=== PATIENT | female | born 1960 | race Caucasian/White ===

== ENCOUNTER 2016-06-07 07:32 | Day surgery (SDC) | payer OTHER ==
[2016-05-30 10:56] VITALS: BMI 33.8
[2016-06-07] MEDS ORDERED: LIDOCAINE HCL 2% (50ML VIAL) INF ONE (09:13)
[2016-06-07] MEDS ORDERED: LACTATED RINGERS SOLUTION 1,000 ML IV SCH (09:30)
[2016-06-07] MEDS ORDERED: ACETAMINOPHEN 325 MG TABLET (FP) PO PRN (10:06)
[2016-06-07] MEDS ORDERED: ONDANSETRON 4 MG/2 ML VIAL IVPUSH PRN (10:06)
[2016-06-07] MEDS ORDERED: oxyCODONE HCL 5 MG TABLET PO PRN (10:07)
[2016-06-07 17:09] VITALS: TEMP 97.9
[2016-06-07 17:17] VITALS: BP 122/76; PULSE 62
--- NOTE | 2016-06-07 20:42 | OP ---
DATE OF OPERATION: 06/07/2016 PREOPERATIVE DIAGNOSIS: Left carpal tunnel syndrome. POSTOPERATIVE DIAGNOSIS: Left carpal tunnel syndrome. OPERATIVE PROCEDURE: Left carpal tunnel release. ANESTHESIA: Local with sedation. COMPLICATIONS: None. ESTIMATED BLOOD LOSS: Minimal. INDICATIONS FOR PROCEDURE: The patient is a 56-year-old female with the above finding, indicated for operative treatment. Risks, benefits, alternatives were discussed with the patient at length and proper informed consent was obtained. PROCEDURE: After proper identification of patient and correct operative site, patient was brought to the operating room, placed supine on the operating table, all prominences well padded. Sedation was given by the anesthesiologist. Local anesthesia was given, 2% lidocaine. Left upper extremity was prepped and draped in usual sterile fashion. A well-padded tourniquet was placed over the sterile prep. Esmarch bandage to exsanguinate left upper extremity. Tourniquet was inflated to 250 mmHg. A longitudinal incision was made in the proximal aspect of the palm. Incision was taken sharply through the skin with blunt and sharp dissection through the subcutaneous tissues. Palmar fascia was divided longitudinally. Transverse carpal ligament was divided longitudinally along with the distal 4 cm of antebrachial fascia under direct visualization with loupe magnification. This provided complete release of the median nerve at the wrist. The wound was irrigated with copious amounts of normal saline and repaired with a 5-0 nylon suture. Sterile dressings were applied. Patient was reversed from sedation and brought to the recovery room in stable condition. She tolerated procedure well. John [id number]
== END 2016-06-07 10:33 | disposition home or self-care (01) ==
LOC: FASU 07:32
PROVIDERS: ATTEND Orthopaedic Surgery Hand Surgery
PROC: 01N50ZZ Release Median Nerve, Open Approach (ICD-10-PCS; principal; 2016-06-07 09:19)
DX: G56.02 Carpal tunnel syndrome, left upper limb (principal)

== ENCOUNTER 2017-04-17 09:19 | Observation (INO) | payer OTHER ==
[2017-04-17 09:35] VITALS: BMI 35.6
--- NOTE | 2017-04-17 09:43 | PDOC ---
History of Present Illness - General Chief Complaint: Shortness of Breath Stated Complaint: SOB, CHEST PAIN Time Seen by Provider: 04/17/17 09:36 History Source: Patient Exam Limitations: No Limitations - History of Present Illness Initial Comments: 04/17/17 10:17 Patient is a 57-year-old female past medical history of hyperlipidemia, "leaky valve", "irregular heartbeat", hypothyroid, who presents to the emergency department today complaining of increasing shortness of breath and chest pain. Patient states that her shortness of breath began approximately 2 months ago. She used to be able to walk 2-3 blocks. Now she cannot walk up and down the stairs without getting short of breath. Patient states that her source of breath got worse yesterday and she developed chest pains associated with her shortness of breath. She states the pain is on the left and is not made worse with respirations. She states her pain moves to her back. Patient also admits to dry cough. Denies recent illness, fevers, chills, edema, palpitations, orthopnea, nausea, vomiting. Past History - Travel Traveled outside of the country in the last 30 days: No Close contact w/someone who was outside of country & ill: No - Past Medical History Allergies/Adverse Reactions: Allergies Allergy/AdvReac Type Severity Reaction Status Date / Time No Known Allergies Allergy Verified 04/17/17 09:35 Home Medications: Ambulatory Orders Aspirin [ASA -] 81 mg PO DAILY #0 tab.chew 07/23/12 Furosemide [Lasix -] 40 mg PO DAILY #0 tablet 07/23/12 Nebivolol HCl [Bystolic] 2.5 mg PO DAILY 11/04/14 Atorvastatin Ca [Lipitor] 20 mg PO HS 04/07/16 Levothyroxine [Synthroid -] 88 mcg PO DAILY 04/07/16 Potassium Chloride [K-Dur -] 20 meq PO DAILY 04/07/16 Cholecalciferol (Vitamin D3) [Vitamin D3 -] 1,000 unit PO DAILY 05/30/16 Multivit-Min/Folic Acid/Biotin [Hair, Skin & Nails Caplet] 1 each PO DAILY 05/30 Vitamin B Complex [B Complex] 1 each PO DAILY 05/30/16 Anemia: No Asthma: No Cancer: No Cardiac Disorders: Yes ("IRREGULAR HEARTBEAT" LEAKY VALVE) CVA: No COPD: No CHF: No DVT: No Dementia: No Diabetes: No GI Disorders: No Disorders: No HTN: No Hypercholesterolemia: Yes Liver Disease: No Seizures: No Thyroid Disease: Yes (HYPO) - Surgical History Abdominal Surgery: Yes (STOMAC DAREN 30 YRS AGO) Appendectomy: No Cardiac Surgery: No Cholecystectomy: No Lung Surgery: No Neurologic Surgery: No Orthopedic Surgery: Yes (LEFT KNEE ARTHROSCOPY 8 YRS AGO) - Immunization History Immunization Up to Date: Yes - Suicide/Smoking/Psychosocial Hx Smoking Status: No Smoking History: Never smoked Have you smoked in the past 12 months: No Number of Cigarettes Smoked Daily: 0 Information on smoking cessation initiated: No Hx Alcohol Use: No Drug/Substance Use Hx: No Substance Use Type: None Hx Substance Use Treatment: No Review of Systems - Review of Systems Able to Perform ROS?: Yes Comments:: 04/17/17 11:39 CONSTITUTIONAL: Absent: fever, chills, diaphoresis, generalized weakness, malaise, loss of appetite HEENT: Absent: rhinorrhea, nasal congestion, throat pain, throat swelling, difficulty swallowing, mouth swelling, ear pain, eye pain, visual Changes CARDIOVASCULAR: Present: chest pain Absent: loss of consciousness, palpitations, irregular heart rate, peripheral edema RESPIRATORY: Present: dry cough, shortness of breath, dyspnea with exertion Absent: orthopnea , wheezing, stridor, hemoptysis GASTROINTESTINAL: Absent: abdominal pain, abdominal distension, nausea, vomiting, diarrhea, constipation, melena, hematochezia GENITOURINARY: Absent: dysuria, frequency, urgency, hesitancy, hematuria, flank pain, genital pain MUSCULOSKELETAL: Absent: myalgia, arthralgia, joint swelling SKIN: Absent: rash, itching, pallor HEMATOLOGIC/IMMUNOLOGIC: Absent: easy bleeding, easy bruising, lymphadenopathy, frequent infections ENDOCRINE: Absent: unexplained weight gain, unexplained weight loss, heat intolerance, cold intolerance NEUROLOGIC: Absent: headache, focal weakness or paresthesias, dizziness, unsteady gait, seizure, mental status changes, bladder or bowel incontinence PSYCHIATRIC: Absent: anxiety, depression, suicidal or homicidal ideation, hallucinations. Is the patient limited [place] proficient: No *Physical Exam - Vital Signs Last Vital Signs Temp Pulse Resp BP Pulse Ox 97.8 F 64 18 139/87 98 04/17/17 09:33 04/17/17 09:33 04/17/17 09:33 04/17/17 09:33 04/17/17 09:33 - Physical Exam Comments: 04/17/17 11:41 GENERAL: Well developed, well nourished. AAOx3. No acute distress. Laying on hospital bed breathing easily. HEENT: Normocephalic, atraumatic. PERRLA, EOMI. No conjunctival pallor. Sclera are non- icteric. Moist mucous membranes. Oropharynx is clear. NECK: Supple. Full ROM. No JVD. Carotid pulses 2+ and symmetric, without bruits. No thyromegaly. No lymphadenopathy. CARDIOVASCULAR: Regular rate and rhythm. No murmurs, rubs, or gallops. Distal pulses are 2+ and symmetric. PULMONARY: No evidence of respiratory distress. Lungs clear to auscultation bilaterally. No wheezing, rales or rhonchi. ABDOMINAL: Soft. Non-tender. Non-distended. No rebound or guarding. No organomegaly. Normoactive bowel sounds. MUSCULOSKELETAL Normal range of motion at all joints. No bony deformities or tenderness. No CVA tenderness. EXTREMITIES: No cyanosis. No clubbing. No edema. No calf tenderness. SKIN: Warm and dry. Normal capillary refill. No rashes. No jaundice. NEUROLOGICAL: Alert, awake, appropriate. Cranial nerves 2-12 intact. No deficits to light touch and temperature in face, upper extremities and lower extremities. No motor deficits in the in face, upper extremities and lower extremities. Normoreflexic in the upper and lower extremities. Normal speech. Toes are down- going bilaterally. Gait is normal without ataxia. PSYCHIATRIC: Cooperative. Good eye contact. Appropriate mood and affect. Heart Score/ECG Review - History History: Moderately suspicious - Electrocardiogram EKG: Normal - Age Age: 45-65 - Risk Factors Risk Factors Heart Score: Yes Hx Hypercholesterolemia, Yes Hx Obesity Based on the list above the patient has:: 1-2 risk factors - Troponin Troponin: </= normal limit - Score Heart Score - Total: 3 ED Treatment Course - LABORATORY CBC & Chemistry Diagram: 04/17/17 10:00 04/17/17 10:00 Medical Decision Making - Medical Decision Making 04/17/17 10:18 Patient is a 57-year-old female past medical history of hyperlipidemia, "leaky valve", "irregular heartbeat", hypothyroid, who presents to the emergency department today complaining of increasing shortness of breath and chest pain for two months. Medication review done. Pt on furosimide and potassium, underlying CHF component? Will r/o ACS at this time. Other differentials include but are not limited to PNA, bronchitis. Pt. states that her interactive developer is Dr. Mckenzie, PCP Dr. Casas 1. CBC, CMP, PT/INR, Mag, Cardiac profile 2. EKG, CXR 3. Aspirin 4. Re-evaluate 04/17/17 10:49 Dr. Mckenzie in the ED. Consulted with him about the patient. States pt has a history of CAD and previous catherization in the past. Would like pt. to be placed in observation for stress test at this time, assuming troponin is negative. Also discussed today's EKG, T-wave inversions are new as of 2 months ago. EKG: Rate 63, NSR. QTc 405. Normal axis. T-wave inversions in V1-V3. 04/17/17 11:50 First Troponin is negative. BNP normal, No leukocytosis, potassium WNL. Dr. Casas PCP, Dr. Cadena cogeneration operator. Will page at this time. 04/17/17 12:[address] Cadena 04/17/17 13:[address] Casas's service. 04/17/17 13:[address] Cadena. Case discussed. Pt. placed in tele obs for stress test. *DC/Admit/Observation/Transfer Diagnosis at time of Disposition: Shortness of breath Chest pain Qualifiers: Chest pain type: unspecified Qualified Code(s): R07.9 - Chest pain, unspecified - Discharge Dispostion Disposition: HOME Condition at time of disposition: Stable Admit: Yes - Referrals Referrals: Yohana Casas MD [Primary Care Provider] - - Patient Instructions - Post Discharge Activity
[2017-04-17] MEDS ORDERED: ASPIRIN 325 MG ENTERIC COATED TABLET (FP) PO ONE (09:53)
[2017-04-17] MEDS ORDERED: ASPIRIN 81 MG CHEWABLE TABLETS ONE ×2 (09:58→10:04)
[2017-04-17 10:31] LABS: BASO % 0.6 % (0-2.0); EOS % 2.2 % (0-4.5); HEMATOCRIT 39.1 % (32.4-45.2); HEMOGLOBIN 12.9 GM/dL (10.7-15.3); LYMPH % 33.6 % (8-40); MCH 29.3 pg (25.7-33.7); MCHC 33.1 g/dl (32.0-36.0); MEAN CELL VOLUME 88.5 fl (80-96); MEAN PLT VOLUME 8.4 fl (7.5-11.1); MONO % 7.2 % (3.8-10.2); NEUT % 56.4 % (42.8-82.8); PLATELET COUNT 346 K/MM3 (134-434); RBC 4.42 M/mm3 (3.60-5.2); RDW 13.2 % (11.6-15.6); WHITE BLOOD COUNT 7.1 K/mm3 (4.0-10.0)
[2017-04-17 10:59] LABS: ALBUMIN 3.5 g/dl (3.4-5.0); ANION GAP 10 (8-16); BILIRUBIN,TOTAL 0.4 mg/dL (0.2-1.0); BLOOD UREA NITROGEN 17 mg/dL (7-18); CALCIUM 9.4 mg/dL (8.5-10.1); CHLORIDE 101 mmol/L (98-107); CO2 29 mmol/L (21-32); CREATININE 0.7 mg/dL (0.55-1.02); GLUCOSE,RANDOM 99 mg/dL (74-106); POTASSIUM 3.8 mmol/L (3.5-5.1); SGOT/AST 28 U/L (15-37); SGPT/ALT 40 U/L (12-78); SODIUM 140 mmol/L (136-145); TOT PROT 7.1 g/dl (6.4-8.2)
[2017-04-17 11:02] LABS: ALK PHOS 113 U/L (45-117)
[2017-04-17 11:10] LABS: INR 1.1 (0.82-1.09); PROTHROMBIN TIME (PATIENT) 12.4 SEC (9.98-11.88)
--- NOTE | 2017-04-17 11:36 | PDOC ---
*Physical Exam - Vital Signs Last Vital Signs Temp Pulse Resp BP Pulse Ox 97.8 F 78 18 115/74 98 04/17/17 09:33 04/17/17 10:25 04/17/17 09:33 04/17/17 10:25 04/17/17 09:33 ED Treatment Course - LABORATORY CBC & Chemistry Diagram: 04/18/17 05:42 04/18/17 05:42 - ADDITIONAL ORDERS Additional order review: Laboratory Results 04/17/17 04/17/17 04/17/17 10:00 10:00 10:00 PT with INR 12.40 H INR 1.10 Sodium Cancelled 140 Potassium Cancelled 3.8 Chloride Cancelled 101 Carbon Dioxide Cancelled 29 Anion Gap Cancelled 10 BUN Cancelled 17 D Creatinine Cancelled 0.7 Creat Clearance w eGFR Cancelled > 60 Random Glucose Cancelled 99 Calcium Cancelled 9.4 Magnesium Cancelled Total Bilirubin Cancelled 0.4 AST Cancelled 28 ALT Cancelled 40 Alkaline Phosphatase Cancelled 113 Creatine Kinase 115 Troponin I < 0.02 B-Natriuretic Peptide Cancelled 46.40 Total Protein Cancelled 7.1 Albumin Cancelled 3.5 TSH Cancelled 04/17/17 10:00 RBC 4.42 MCV 88.5 MCHC 33.1 RDW 13.2 MPV 8.4 Neutrophils % 56.4 Lymphocytes % 33.6 Monocytes % 7.2 Eosinophils % 2.2 Basophils % 0.6 - Medications Given in the ED: ED Medications Discontinued Medications Generic Name Dose Route Start Last Admin Trade Name Freq PRN Reason Stop Dose Admin Aspirin 325 mg 04/17/17 09:53 04/17/17 10:02 Ecotrin - PO 04/17/17 09:54 325 mg ONCE ONE Administration Medical Decision Making - Medical Decision Making 04/17/17 11:35 The patient was seen and evaluated in conjunction with FLORENTINO Juárez under my direct supervision, ancillary studies were reviewed. I agree with the plan as outlined by FLORENTINO Juárez . *DC/Admit/Observation/Transfer Diagnosis at time of Disposition: Chest pain, Shortness of breath - Discharge Dispostion Disposition: HOME Condition at time of disposition: Stable - Referrals - Patient Instructions - Post Discharge Activity
--- NOTE | 2017-04-17 14:42 | EKG ---
Test Reason : Blood Pressure : / mmHG Vent. Rate : 063 BPM Atrial Rate : 063 BPM P-R Int : 150 ms QRS Dur : 090 ms QT Int : 396 ms P-R-T Axes : 048 -10 020 degrees QTc Int : 405 ms NORMAL SINUS RHYTHM LOW VOLTAGE QRS CANNOT RULE OUT ANTERIOR INFARCT , AGE UNDETERMINED ABNORMAL ECG Confirmed by Jose F Garcia MD ([id number]) on 04/17/2017 2:42:10 PM Referred By: Confirmed By:Jose F Garcia MD
--- NOTE | 2017-04-17 14:49 | HP ---
Admitting History and Physical - Primary Care Physician PCP: Yohana Casas - Admission Chief Complaint: chest pain and shortness of breath History of Present Illness: Patient is a 57-year-old female past medical history of hyperlipidemia, "leaky valve", "irregular heartbeat", hypothyroid, who presents to the emergency department today complaining of increasing shortness of breath and chest pain. Patient states that her shortness of breath began approximately 2 months ago. She used to be able to walk 2-3 blocks. Now she cannot walk up and down the stairs without getting short of breath. Patient states that her source of breath got worse yesterday and she developed chest pains associated with her shortness of breath. She states the pain is on the left and is not made worse with respirations. She states her pain moves to her back. Patient also admits to dry cough. Denies recent illness, fevers, chills, edema, palpitations, orthopnea, nausea, vomiting. per patient she has been getting progressively short of breath for last 2 months , now getting worse to the point that when she walk three stairs she needs to stop and catch her breath or when she talks alot she gets short of breath. today she felt light headed and dizzy and was having heaviness of chest as well in ER found to have negative troponin and some changes noted in EKG which are new; t wave inversion noted History Source: Patient - Past Medical History Cardiovascular: Yes: Hyperlipdemia, Other (leaking valve) Endocrine: Yes: Hypothyroidism - Smoking History Smoking history: Never smoked Have you smoked in the past 12 months: No Aproximately how many cigarettes per day: 0 - Alcohol/Substance Use Hx Alcohol Use: No Home Medications - Allergies Allergies/Adverse Reactions: Allergies Allergy/AdvReac Type Severity Reaction Status Date / Time No Known Allergies Allergy Verified 04/17/17 09:35 - Home Medications Home Medications: Ambulatory Orders Aspirin [ASA -] 81 mg PO DAILY #0 tab.chew 07/23/12 Furosemide [Lasix -] 40 mg PO DAILY #0 tablet 07/23/12 Nebivolol HCl [Bystolic] 2.5 mg PO DAILY 11/04/14 Atorvastatin Ca [Lipitor] 20 mg PO HS 04/07/16 Levothyroxine [Synthroid -] 88 mcg PO DAILY 04/07/16 Potassium Chloride [K-Dur -] 20 meq PO DAILY 04/07/16 Cholecalciferol (Vitamin D3) [Vitamin D3 -] 1,000 unit PO DAILY 05/30/16 Multivit-Min/Folic Acid/Biotin [Hair, Skin & Nails Caplet] 1 each PO DAILY 05/30 Vitamin B Complex [B Complex] 1 each PO DAILY 05/30/16 Review of Systems - Review of Systems Cardiovascular: reports: No Symptoms Physical Examination Vital Signs: Vital Signs Temperature 97.8 F 04/17/17 09:33 Pulse Rate 78 04/17/17 10:25 Respiratory Rate 18 04/17/17 09:33 Blood Pressure 115/74 04/17/17 10:25 O2 Sat by Pulse Oximetry (%) 98 04/17/17 09:33 Constitutional: Yes: Calm Cardiovascular: Yes: Regular Rate and Rhythm, S1, S2 Respiratory: Yes: CTA Bilaterally Gastrointestinal: Yes: Normal Bowel Sounds, Soft Edema: No Neurological: Yes: Alert, Oriented Labs: CBC, BMP 04/17/17 10:00 04/17/17 10:00 Imaging - Results Chest X-ray: Report Reviewed Problem List - Problems (1) Chest pain Assessment/Plan: admit to tele/ observation stress test cardio eval echo CE third set asa, statin BB lipid panel Code(s): R07.9 - CHEST PAIN, UNSPECIFIED Qualifiers: Chest pain type: unspecified Qualified Code(s): R07.9 - Chest pain, unspecified (2) Shortness of breath Assessment/Plan: echo bnp is ok no leg edema no effusion on xray allison hold lasix for now given she was dizzzy in morning telemetry to monitor arrythmia Code(s): R06.02 - SHORTNESS OF BREATH (3) Hypothyroid Assessment/Plan: synthroid tsh check Code(s): E03.9 - HYPOTHYROIDISM, UNSPECIFIED
[2017-04-17] MEDS ORDERED: FAMOTIDINE 20 MG/50 ML IVPB 20 MG in PREMIX 50 IVPB ONE (16:38)
[2017-04-17] MEDS ORDERED: MAG HYDROX/AL HYDROX/SIMETH 355 ML ORAL.SUSP PO ONE (16:38)
[2017-04-17] MEDS ORDERED: FAMOTIDINE 20 MG/50 ML IVPB 20 MG/50 ML MG IVPB ONE (16:41)
[2017-04-17] MEDS ORDERED: MAG HYDROX/AL HYDROX/SIMETH 30 ML UNIT-DOSE CUP ONE (16:41)
[2017-04-17] MEDS ORDERED: ATORVASTATIN CA 20 MG TABLET (FP) PO SCH (22:00)
--- NOTE | 2017-04-18 01:04 | CONS ---
DATE OF CONSULTATION: 04/17/2017 REQUESTING PHYSICIAN: Tammi Farrell M.D. REASON FOR CONSULTATION: Cardiology consultation. LOCATION: Emergency room. CHIEF COMPLAINT: 1. Chest pain. 2. Shortness of breath. HISTORY OF PRESENT ILLNESS: Patient is a 57-year-old white female with history of hypercholesterolemia, hypothyroidism, palpitations, nonobstructive coronary artery disease, started noticing interscapular and anterior pressure like chest pain starting approximately 2 months ago. Pain initially was mild, and occurred with exertion, relieved by rest, and was at times accompanied by exertional dyspnea, especially after she was walking 2-3 blocks. Both dyspnea and chest discomfort became progressively more frequent, occurring at shorter distances, and last Sunday she had severe intrascapular pain radiating to the anterior chest accompanied by shortness of breath and weakness/lightheadedness. Symptoms persisted for 1-2 hours and then abated. Patient states that in the last 2 days, she is unable to walk more than 6 steps without getting dyspneic. There is no history of paroxysmal nocturnal dyspnea or orthopnea. There is history of chronic intermittent pedal edema, usually at the end of the day. No history of hypertension or diabetes mellitus. PAST HISTORY: 1. As mentioned in the history of present illness. 2. History of intermittent vertigo. SURGICAL HISTORY: 1. Status post x2. 2. Status post gastric bypass. 3. Status post surgery for excessive abdominal skin over the abdomen and thighs. SOCIAL HISTORY: She is employed, is , has 2 daughters, is a nonsmoker and does not drink. She has 1 cup of coffee. No history of drug use. FAMILY HISTORY: Father had contracted hepatitis C from a blood transfusion and developed cirrhosis followed by carcinoma of the liver. He in his 60s. Mother was a diabetic and in her 60s of myocardial infarction. She has 2 sisters. The younger sister had a cerebral aneurysm and underwent coil procedure. Second sister had thyroid carcinoma and had total thyroidectomy done. ALLERGIES: Patient has experienced fatigue with metoprolol tartrate. MEDICATION: 1. Bystolic 2.5 mg p.o. daily. 2. Atorvastatin 20 mg p.o. daily. 3. Aspirin 81 mg p.o. daily. 4. Levothyroxine 88 mcg p.o. daily. 5. Lasix 40 mg on a p.r.n. basis. 6. Potassium supplements 20 mEq when she takes Lasix. Patient received famotidine IV which has since been discontinued. REVIEW OF SYSTEMS: Constitutional: No history of chills, fever, or night sweats. No history of unintentional weight loss. HEENT: No history of headaches, diplopia, blurred vision. No history of epistaxis, hoarseness, tinnitus, or deafness reported. Cardiovascular: See history of present illness. Respiratory: See history of present illness. History of intermittent morning cough which is nonproductive. No history of hemoptysis. Gastrointestinal: History of recurring gastroesophageal reflux disease. No history of nausea, vomiting, melena, or hematemesis. History of intermittent right upper quadrant discomfort. No history or change in bowel habits. Central nervous system: No history of seizures, syncope, or focal weakness. History of intermittent lightheadedness associated with chest discomfort. Musculoskeletal: History of arthralgias involving both knees, no history of myalgias. Genitourinary: No history of dysuria, frequency, or hematuria. Endocrine: History of hypothyroidism. No history of intolerance to cold or warm weather. No history of polyuria or polydipsia. Hematological: No history of ecchymosis, bleeding or anemia. PHYSICAL EXAMINATION: General: A 57-year-old female was in no acute distress, no pallor, cyanosis, clubbing, or jaundice. Vital signs: Weight 195 pounds. Blood pressure 110/75 mmHg. Pulse 78 beats per minute and regular. Oxygen saturation 97% on room air. Respirations 16 per minute. Neck: Supple. No jugulovenous distention. Carotids were 2+. Upstrokes were normal. No bruits were heard, and no thyromegaly was present. Heart: PMI was in the 5th intercostal space, no heaves or thrills. S1 and S2 were normal. Nonejection systolic click was heard along the left sternal border. There is a faint grade 1/6 apical systolic murmur. No diastolic murmur or gallops were heard. Lungs: Clear on auscultation. Chest: Normal AP diameter. Expansion was symmetrical. Abdomen: Soft, obese and nontender. No hepatosplenomegaly or palpable masses were felt. Bowel sounds were present. No bruits were heard. There were well healed surgical scars. Extremities: No calf tenderness or dependent edema, pulses were equal. ECG: Reported as normal sinus rhythm, low QRS voltage, cannot rule out anterior infarct, age indeterminate. X-rays chest, impression: No evidence of acute pulmonary disease. Echocardiogram, interpretation: there is borderline concentric left ventricular hypertrophy. The left ventricle is normal in structure and function. Right ventricle is normal in size and function. Normal left and right atrial size and function. There is trace to mild mitral regurgitation. There is trace tricuspid regurgitation. There is mild aortic sclerosis. IMPRESSION: 1. Chest pain syndrome, clinical presentation is suggestive of coronary artery disease, angina pectoris. 2. Abnormal echocardiogram. 3. Hypothyroidism, on replacement therapy. 4. History of gastroesophageal reflux disease. 5. Exogenous obesity. 6. Hypothyroidism on replacement therapy. 7. History of palpitations, most likely related to supraventricular or premature beats. RECOMMENDATION: 1. Serial EKGs and enzymes. 2. If enzymes are negative, would suggest Myoview stress test. 3. Continue current medications. 4. D-dimer. 5. Further suggestions would depend upon the results of the above mentioned tests. Thank you for your referral. Sincerely, ZAIN ZAVALA M.D. [id number]
[2017-04-18] MEDS: LEVOTHYROXINE NA 88 MCG TABLET (FP) PO SCH (06:02)
--- NOTE | 2017-04-18 08:13 | PN ---
Progress Note, Physician History of Present Illness: no cp this am c/o sob - Current Medication List Current Medications: Active Medications Aspirin (Ecotrin -) 81 mg PO DAILY ROHINI Atorvastatin Calcium (Lipitor -) 20 mg PO HS [facility] Last Admin: 04/17/17 22:12 Dose: Not Given Levothyroxine Sodium (Synthroid -) 88 mcg PO DAILY@0700 [facility] Last Admin: 04/18/17 06:02 Dose: 88 mcg Nebivolol (Bystolic -) 2.5 mg PO DAILY [facility] - Objective Vital Signs: Vital Signs Temperature 98.1 F 04/18/17 07:30 Pulse Rate 66 04/18/17 07:30 Respiratory Rate 16 04/18/17 07:30 Blood Pressure 132/60 04/18/17 07:30 O2 Sat by Pulse Oximetry (%) 98 04/17/17 22:29 Cardiovascular: Yes: Pulse Irregular, S1, S2 Respiratory: Yes: Regular, CTA Bilaterally Gastrointestinal: Yes: Normal Bowel Sounds, Soft Labs: INR, PTT INR 1.10 (0.82-1.09) 04/17/17 10:00 Problem List - Problems (1) Chest pain Assessment/Plan: admit to tele/ observation stress test cardio eval echo CE third set asa, statin BB lipid panel Code(s): R07.9 - CHEST PAIN, UNSPECIFIED Qualifiers: Chest pain type: unspecified Qualified Code(s): R07.9 - Chest pain, unspecified (2) Shortness of breath Assessment/Plan: echo bnp is ok no leg edema no effusion on xray allison hold lasix for now given she was dizzzy in morning telemetry to monitor arrythmia Code(s): R06.02 - SHORTNESS OF BREATH (3) Abdominal pain Assessment/Plan: US--FATTY LIVER GI CONSULT Code(s): R10.9 - UNSPECIFIED ABDOMINAL PAIN (4) Hypothyroid Assessment/Plan: FOLLOW TSH Code(s): E03.9 - HYPOTHYROIDISM, UNSPECIFIED (5) Arrhythmia Assessment/Plan: TELE Code(s): I49.9 - CARDIAC ARRHYTHMIA, UNSPECIFIED
[2017-04-18 08:42] LABS: BASO % 0.7 % (0-2.0); EOS % 2.5 % (0-4.5); HEMATOCRIT 40.4 % (32.4-45.2); HEMOGLOBIN 13.1 GM/dL (10.7-15.3); LYMPH % 30.3 % (8-40); MCH 28.9 pg (25.7-33.7); MCHC 32.3 g/dl (32.0-36.0); MEAN CELL VOLUME 89.5 fl (80-96); MEAN PLT VOLUME 9.1 fl (7.5-11.1); MONO % 6.7 % (3.8-10.2); NEUT % 59.8 % (42.8-82.8); PLATELET COUNT 354 K/MM3 (134-434); RBC 4.51 M/mm3 (3.60-5.2); RDW 13.5 % (11.6-15.6); WHITE BLOOD COUNT 8.3 K/mm3 (4.0-10.0)
[2017-04-18 09:12] LABS: CHOLESTEROL 188 mg/dL (50-200); HDL CHOLESTEROL 62 mg/dL (40-60); LDL CHOLESTEROL (ONLY SJRH) 108 mg/dL (5-100); TRIGLYCERIDES 122 mg/dL (35-160)
[2017-04-18 09:21] LABS: CHLORIDE 104 mmol/L (98-107); POTASSIUM 3.8 mmol/L (3.5-5.1); SODIUM 141 mmol/L (136-145)
[2017-04-18 09:46] LABS: ALBUMIN 3.5 g/dl (3.4-5.0); ALK PHOS 109 U/L (45-117); ANION GAP 8 (8-16); BILIRUBIN,TOTAL 0.8 mg/dL (0.2-1.0); BLOOD UREA NITROGEN 15 mg/dL (7-18); CALCIUM 8.9 mg/dL (8.5-10.1); CO2 29 mmol/L (21-32); CREATININE 0.8 mg/dL (0.55-1.02); GLUCOSE,RANDOM 80 mg/dL (74-106); PHOSPHOROUS 3.6 mg/dL (2.5-4.9); SGOT/AST 23 U/L (15-37); SGPT/ALT 38 U/L (12-78)
[2017-04-18] MEDS ORDERED: NEBIVOLOL 2.5 MG TABLET (FP) PO SCH (10:00)
[2017-04-18] MEDS ORDERED: PT OWN MED DRAWER 7, Y5N ONE (11:06)
[2017-04-18] MEDS ORDERED: BISACODYL 5 MG TABLET.DR (FP) PO ONE ×2 (13:54→14:45)
[2017-04-18] MEDS ORDERED: ATORVASTATIN CA 40 MG TABLET (FP) PO SCH (13:54)
--- NOTE | 2017-04-18 14:18 | CON.GI ---
Consult Consult Specialty:: GI: Dr. Mays covering for Dr. Casas Referred by:: Dr. Casas Reason for Consultation:: Abdominal pain - History of Present Illness Chief Complaint: "my shortness of breath has been getting worse" History of Present Illness: 57F admitted through [facility] for evaluation of progressive RAMOS and intermittent chest pain in mid chest radiating from back to front. Called to evaluate right sided abdominal pain. Ms. Delacruz describes the pain as intermittent, worse with motion, particularly when she gets out of bed in the morning. It is not radiating and appears to be isolated to a particular area of the mid right abdomen where she points. This has been going on for quite some time now but has "gotten worse recently". there has been no associated nausea, vomiting, rectal bleeding. She has chronic constipation for which she uses dulcolax and has not had a bowel movement in 2 days and also has chronic acid reflux. She believes that she had an EGD and colonoscopy with Dr. Valadez about 5-6 years ago that were OK and has an appointment to see him at the end of this month. She had an abdominal US 1217 that revealed a fatty liver and normal gallbladder. there is no family history of colorectal cancer or other GI malignancy. - History Source History Provided By: Patient Limitations to Obtaining History: No Limitations - Past Medical History Cardio/Vascular: Yes: Hyperlipdemia, Other (leaking valve) Gastrointestinal: Yes: Constipation, GERD Hepatobiliary: Yes: Other (Fatty liver) ...: No Endocrine: Yes: Hypothyroidism - Past Surgical History Additional Surgical History: stomach reduction surgery 30 years prior, b/l cystectomies of the breasts, cosmetic leg surgeries b/l, - Alcohol/Substance Use Hx Alcohol Use: No History of Substance Use: reports: None - Smoking History Smoking history: Never smoked Have you smoked in the past 12 months: No Aproximately how many cigarettes per day: 0 - Social History Usual Living Arrangement: With Spouse ADL: Independent Occupation: Worked in [employer] industry Place of : [facility] History of Recent Travel: No Home Medications - Allergies Allergies/Adverse Reactions: Allergies Allergy/AdvReac Type Severity Reaction Status Date / Time No Known Allergies Allergy Verified 04/17/17 09:35 - Home Medications Home Medications: Ambulatory Orders Aspirin [ASA -] 81 mg PO DAILY #0 tab.chew 07/23/12 Furosemide [Lasix -] 40 mg PO DAILY #0 tablet 07/23/12 Nebivolol HCl [Bystolic] 2.5 mg PO DAILY 11/04/14 Atorvastatin Ca [Lipitor] 20 mg PO HS 04/07/16 Levothyroxine [Synthroid -] 88 mcg PO DAILY 04/07/16 Potassium Chloride [K-Dur -] 20 meq PO DAILY 04/07/16 Cholecalciferol (Vitamin D3) [Vitamin D3 -] 1,000 unit PO DAILY 05/30/16 Multivit-Min/Folic Acid/Biotin [Hair, Skin & Nails Caplet] 1 each PO DAILY 05/30 Vitamin B Complex [B Complex] 1 each PO DAILY 05/30/16 Family Disease History - Family Disease History Family Disease History: Other: Father (: 60's liver cancer in setting of cirrhosis with ? hepatitis C), Mother (: 60's: CVA, brain tumor), Sister (2 : 1 w/ ovarian ca, 1 with thyroid cancer), Daughter (2, healthy) Other Family History: No family history of colorectal cancer or other GI malignancy Physical Exam-GI Vital Signs: Vital Signs Temperature 98.1 F 04/18/17 07:30 Pulse Rate 66 04/18/17 07:30 Respiratory Rate 16 04/18/17 07:30 Blood Pressure 132/60 04/18/17 07:30 O2 Sat by Pulse Oximetry (%) 96 04/18/17 09:00 Constitutional: Yes: Calm Eyes: No: Sclera Icterus Cardiovascular: Yes: Regular Rate and Rhythm. No: Murmur Respiratory: Yes: CTA Bilaterally Gastrointestinal Inspection: Yes: Scars (Midline vertical surgical scar). No: Distention ...Auscultate: Yes: Normoactive Bowel Sounds ...Palpate: Yes: Tenderness (Mild TTP mid-right abdomen. Negative Carnett's sign ). No: Hepatomegaly, Splenomegaly ...Percussion: No: Tympanitic Edema: Yes Edema: LLE: Trace, RLE: Trace Neurological: Yes: Alert Labs: CBC, BMP 04/18/17 05:42 04/18/17 05:42 INR, PTT INR 1.10 (0.82-1.09) 04/17/17 10:00 Hepatic Panel Total Bilirubin 0.8 mg/dL (0.2-1.0) D 04/18/17 05:42 AST 23 U/L (15-37) 04/18/17 05:42 ALT 38 U/L (12-78) 04/18/17 05:42 Alkaline Phosphatase 109 U/L (45-117) 04/18/17 05:42 Albumin 3.5 g/dl (3.4-5.0) 04/18/17 05:42 Problem List - Problems (1) Abdominal pain Assessment/Plan: Chronic right sided abdominal pain, worse with positional change. ? if somatic as opposed to visceral etiology. also with constipation. ? if contributing Plan: MiraLAX 17g daily first dose today CT scan of the abdomen and pelvis with PO contrast Outpatient follow-up with Dr. Valadez when acute issues are resolved. i advised that she keep the appointment that she has at the end of this month Code(s): R10.9 - UNSPECIFIED ABDOMINAL PAIN (2) Fatty liver Assessment/Plan: On US from 1217. Discussed with Ms. Delacruz. Advised dietary changes, exercise when feasible and follow-up with Dr. Valadez as outpatient Code(s): K76.0 - FATTY (CHANGE OF) LIVER, NOT ELSEWHERE CLASSIFIED
[2017-04-18] MEDS: ASPIRIN COATED 81 MG TABLET.EC PO SCH (14:20)
--- NOTE | 2017-04-18 15:07 | EKG ---
Test Reason : Blood Pressure : / mmHG Vent. Rate : 076 BPM Atrial Rate : 076 BPM P-R Int : 168 ms QRS Dur : 100 ms QT Int : 368 ms P-R-T Axes : 037 -16 049 degrees QTc Int : 414 ms NORMAL SINUS RHYTHM ABNORMAL ECG WHEN COMPARED WITH ECG OF 17-APR-2017 09:28, NO SIGNIFICANT CHANGE WAS FOUND Confirmed by STACI AVERY MD ([id number]) on 04/18/2017 3:07:21 PM Referred By: Albert SAMANIEGO Confirmed By:STACI AVERY MD
--- NOTE | 2017-04-18 16:40 | PN ---
Progress Note (short form) - Note Progress Note: 57 year old female admitted with h/o recurring and increasing exertional chest pain associated with SOB, patient underwent a myoview ETT, test wss submaximal, achieved 75% of predictive maximum heart rate and test was nondiagnostic. Nuclear scan did nor reveal ischemic changes. Patint did develop chest pain and SOB at peak excercise (Stage II Kaushik protocol). H/o hypothyroidism and hypercholesterolemia. H/o GERD, and c/o of RUQ discomfort associated with change in posture. Had a cardiac cath in 2007 and revealed a 20% lesion involving the proximal LAD. Active Medications Generic Name Dose Route Start Last Admin Trade Name Freq PRN Reason Stop Dose Admin Aspirin 81 mg 04/18/17 10:00 04/18/17 14:20 Ecotrin - PO 81 mg DAILY ROHINI Administration Atorvastatin Calcium 40 mg 04/18/17 13:54 Lipitor - PO HS ROHINI Levothyroxine Sodium 88 mcg 04/18/17 07:00 04/18/17 06:02 Synthroid - PO 88 mcg DAILY@0700 ROHINI Administration Nebivolol 2.5 mg 04/18/17 10:00 04/18/17 14:20 Bystolic - PO 2.5 mg DAILY ROHINI Administration Pantoprazole Sodium 20 mg 04/19/17 10:00 Protonix - PO DAILY ROHINI Polyethylene Glycol 17 gm 04/19/17 10:00 Miralax (For Daily Use) - PO DAILY ROHINI 57 year old obese female in no acute distress, no pallor, cyanosis, clubbing or jaundice. Last Vital Signs Temp Pulse Resp BP Pulse Ox 98.0 F 79 16 140/73 96 04/18/17 14:00 04/18/17 14:00 04/18/17 07:30 04/18/17 14:00 04/18/17 09:00 NECK:Supple, no JVD, carotids 2+, upstrokes were normal, no bruits heard and no thyromegaly. HEART:No heaves or thrills, nonejection click along the LSB. No murmur or gallops heard. LUNGS:Clear on auscultation. ABDOMEN:Soft, nontender, obese, no organomegaly or palpable masses.Well healed surgical scars EXTREMITIES:No calf tenderness or dependent edema. CBC, BMP 04/18/17 05:42 01/10/18 05:42 IMPRESSION: 1: Chest pain syndrome associated with exertional dyspnea, etiology: a). CAD, angina pectoris needs to be excluded. 2. Abnormal resting EKG. 3.Hypothyroidism, on replaced therapy. 4.GERD. 5.Exogenous obesity. 6.Hypercholesterolemia. RECOMMENDATIONS: 1. D-Dimer. 2. BNP. 3. in view clinical presentation would suggest early cath. 4. Patient scheduled for a CT of the abdomen and pelvis. 5. Increase dose of Bystolic to 5mg. daily. ZAIN ZAVALA MD.
[2017-04-19] MEDS ORDERED: ACETAMINOPHEN 325 MG TABLET (FP) PO ONE (05:36)
[2017-04-19] MEDS: LEVOTHYROXINE NA 88 MCG TABLET (FP) PO SCH (06:06)
--- NOTE | 2017-04-19 08:25 | PN ---
Progress Note, Physician History of Present Illness: no cp this am c/o sob - Current Medication List Current Medications: Active Medications Aspirin (Ecotrin -) 81 mg PO DAILY [facility] Last Admin: 04/18/17 14:20 Dose: 81 mg Atorvastatin Calcium (Lipitor -) 40 mg PO HS [facility] Last Admin: 04/18/17 21:51 Dose: Not Given Levothyroxine Sodium (Synthroid -) 88 mcg PO DAILY@0700 [facility] Last Admin: 04/19/17 06:06 Dose: 88 mcg Nebivolol (Bystolic -) 5 mg PO DAILY ROHINI Pantoprazole Sodium (Protonix -) 20 mg PO DAILY [facility] Polyethylene Glycol (Miralax (For Daily Use) -) 17 gm PO DAILY [facility] - Objective Vital Signs: Vital Signs Temperature 98.4 F 04/19/17 06:00 Pulse Rate 66 04/19/17 06:00 Respiratory Rate 20 04/19/17 06:00 Blood Pressure 107/68 04/19/17 06:00 O2 Sat by Pulse Oximetry (%) 96 04/18/17 21:00 Cardiovascular: Yes: Regular Rate and Rhythm Respiratory: Yes: Regular, CTA Bilaterally Gastrointestinal: Yes: Normal Bowel Sounds, Soft. No: Tenderness Edema: No Labs: CBC, BMP 04/18/17 05:42 04/18/17 05:42 INR, PTT INR 1.10 (0.82-1.09) 04/17/17 10:00 Problem List - Problems (1) Chest pain Assessment/Plan: admit to tele/ observation stress test SUBOPTIMAL cardio eval echo CE third set asa, statin BB lipid panel WILL D/W CARDIO--POSSIBLE CATH Code(s): R07.9 - CHEST PAIN, UNSPECIFIED Qualifiers: Chest pain type: unspecified Qualified Code(s): R07.9 - Chest pain, unspecified (2) Shortness of breath Assessment/Plan: echo noted bnp is ok no leg edema no effusion on xray allison hold lasix for now given she was dizzzy in morning telemetry to monitor arrythmia for cath Code(s): R06.02 - SHORTNESS OF BREATH (3) Abdominal pain Code(s): R10.9 - UNSPECIFIED ABDOMINAL PAIN (4) Hypothyroid Assessment/Plan: FOLLOW TSH Code(s): E03.9 - HYPOTHYROIDISM, UNSPECIFIED (5) Arrhythmia Assessment/Plan: TELE Code(s): I49.9 - CARDIAC ARRHYTHMIA, UNSPECIFIED
--- NOTE | 2017-04-19 09:59 | PN ---
Progress Note (short form) - Note Progress Note: 57 year old female admitted with h/o recurring and increasing exertional chest pain associated with SOB, patient underwent a myoview ETT, test wss submaximal, achieved 75% of predictive maximum heart rate and test was nondiagnostic. Nuclear scan did nor reveal ischemic changes. Patient did develop chest pain and SOB at peak excercise (Stage II Kaushik protocol).Known case of GERD, hypothyroidism and hypercholesterolemia. and c/o of RUQ discomfort associated unrelated to food, occurs with change in posture. Had a cardiac cath in 2007 at [facility] and revealed a 20% lesion involving the proximal LAD. Active Medications Generic Name Dose Route Start Last Admin Trade Name Freq PRN Reason Stop Dose Admin Aspirin 81 mg 04/18/17 10:00 04/18/17 14:20 Ecotrin - PO 81 mg DAILY ROHINI Administration Atorvastatin Calcium 40 mg 04/18/17 13:54 Lipitor - PO HS ROHINI Levothyroxine Sodium 88 mcg 04/18/17 07:00 04/18/17 06:02 Synthroid - PO 88 mcg DAILY@0700 ROHINI Administration Nebivolol 2.5 mg 04/18/17 10:00 04/18/17 14:20 Bystolic - PO 2.5 mg DAILY ROHINI Administration Pantoprazole Sodium 20 mg 04/19/17 10:00 Protonix - PO DAILY ROHINI Polyethylene Glycol 17 gm 04/19/17 10:00 Miralax (For Daily Use) - PO DAILY ROHINI 57 year old obese female in no acute distress, no pallor, cyanosis, clubbing or jaundice. Last Vital Signs Temp Pulse Resp BP Pulse Ox 98.4 F 66 20 107/68 96 04/19/17 06:00 04/19/17 06:00 04/19/17 06:00 04/19/17 06:00 04/18/17 21:00 NECK: Supple, no JVD, carotids 2+, no bruits or thyromegaly. HEART: PMI in the 5th ICS, no heaves or thrills NEC along the LSB, no murmur or gallops heard. LUNGS: Clear on auscultation. ABDOMEN: Obese, nontender, nohepatosplenomegaly or palpable masses, well healed surgical scars. EXTREMITIES: No calf tenderness or dependent edema. CBC, BMP 04/18/17 05:42 04/18/17 05:42 Laboratory Results - last 24 hr 04/18/17 04/18/17 18:10 18:10 D-Dimer 330 B-Natriuretic Peptide 42.86 IMPRESSION: 1. Chest Pain syndrome associated with dyspnea, CAD angina needs exclusion. 2. Hypercholesterolemia. 3. OSAS. 4. Obesity. 5.GERD. 6.S/p gastric bypass surgery. Recommendations: 1. Discussed with patient and DrJennifer and agreeable for transrer to [facility] for cardiac cath. 2. Arrangements have been made. .
[2017-04-19] MEDS ORDERED: PANTOPRAZOLE 20 MG TABLET (FP) PO SCH (10:00)
[2017-04-19] MEDS ORDERED: NEBIVOLOL 5 MG TABLET (FP) PO SCH (10:00)
[2017-04-19] MEDS ORDERED: POLYETHYLENE GLYCOL 3350 119 GM BTL PO SCH (10:00)
[2017-04-19 10:50] VITALS: BP 150/90; PULSE 84; TEMP 98.6
[2017-04-19] MEDS: ASPIRIN COATED 81 MG TABLET.EC PO SCH (10:51)
== END 2017-04-19 11:19 | disposition short-term general hospital (02) ==
LOC: JER 09:19 → JERBED 13:52 → J4W 20:56
PROVIDERS: ADMIT Family Medicine; ATTEND Family Medicine
DX: R07.9 Chest pain, unspecified (principal); R06.02 Shortness of breath; R10.9 Unspecified abdominal pain; E03.9 Hypothyroidism, unspecified; E78.5 Hyperlipidemia, unspecified; I34.0 Nonrheumatic mitral (valve) insufficiency; I49.9 Cardiac arrhythmia, unspecified; K76.0 Fatty (change of) liver, not elsewhere classified; K21.9 Gastro-esophageal reflux disease without esophagitis; E66.9 Obesity, unspecified; Z68.35 Body mass index [BMI] 35.0-35.9, adult; Z79.82 Long term (current) use of aspirin; Z98.84 Bariatric surgery status
CPT/HCPCS: 36415; 71045-TC; 74176-TC; 78452-TC; 80053; 80061; 82550; 83721; 83735; 83880; 84100; 84443; 84484; 85025; 85379; 85610; 93005; 93010; 93017; 93306-TC; 99284-25; A9502; G0378

== ENCOUNTER 2017-05-09 10:06 | Day surgery (SDC) | payer OTHER ==
[2017-05-08 11:49] VITALS: BMI 34.9
[2017-05-09] MEDS ORDERED: PROPOFOL 20 ML ONE (10:27)
[2017-05-09 11:26] VITALS: TEMP 97.6
[2017-05-09 12:09] VITALS: BP 114/73; PULSE 72
--- NOTE | 2017-05-10 13:17 | PATH ---
Surgical Pathology Report Patient Name: RUBÉN OMALLEY [facility]. Rec. #: [id number] /Age/Gender: 1960 (Age: 57) / F Account: [id number] Location: U-ENDOSCOPY Taken: 05/09/2017 Received: 05/09/2017 Reported: 05/10/2017 Physicians: Denise Valadez M.D. Specimen(s) Received A: BX SECOND PORTION DUODENUM B: BX ANTRUM Clinical History Preoperative diagnosis: Abdominal pain Postoperative diagnosis: Hiatal hernia, GERD, gastric sleeve Final Diagnosis A. DUODENUM, SECOND PORTION AND BULB, BIOPSY: DUODENAL MUCOSA WITHOUT SIGNIFICANT PATHOLOGIC FINDINGS. B. STOMACH, ANTRUM, BIOPSY: GASTRIC ANTRAL MUCOSA WITH MILD CHRONIC GASTRITIS. IMMUNOHISTOCHEMICAL STAIN FOR H. PYLORI IS NEGATIVE. Electronically Signed Donna Tang M.D. Gross Description A. Received in formalin, labeled "biopsy second portion of duodenum and duodenal bulb" are 3 gomez, irregular portions of soft tissue averaging 0.3 cm. in greatest dimension. The specimens are submitted in toto in one cassette. B. Received in formalin, labeled "biopsy antrum" are 2 gomez, irregular portions of soft tissue averaging 0.4 cm. in greatest dimension. The specimens are submitted in toto in one cassette. 05/09/201705/09/2017
== END 2017-05-09 12:27 | disposition home or self-care (01) ==
LOC: JASU-ENDO 10:06
PROVIDERS: ATTEND Internal Medicine Gastroenterology
PROC: 0DB68ZX Excision of Stomach, Via Natural or Artificial Opening Endoscopic, Diagnostic (ICD-10-PCS; 2017-05-09)
PROC: 0DB98ZX Excision of Duodenum, Via Natural or Artificial Opening Endoscopic, Diagnostic (ICD-10-PCS; principal; 2017-05-09 10:45)
DX: K21.0 Gastro-esophageal reflux disease with esophagitis (principal); K44.9 Diaphragmatic hernia without obstruction or gangrene; Z98.84 Bariatric surgery status
CPT/HCPCS: 88305-TC; 88342-TC

== ENCOUNTER 2018-05-08 13:10 | Emergency (ER) | payer OTHER ==
[2018-05-08 13:25] VITALS: BP 128/85; PULSE 70; TEMP 98.5; BMI 35.6
--- NOTE | 2018-05-08 14:49 | PDOC ---
History of Present Illness - General Chief Complaint: Headache Stated Complaint: HEADPAIN / BLURRY VISION Time Seen by Provider: 05/08/18 14:23 History Source: Patient Exam Limitations: No Limitations - History of Present Illness Initial Comments: 05/08/18 14:25 58 year old woman with a past medical history of hyperlipidemia, "leaky valve", "irregular heartbeat", hypothyroid who presents with 3 days of 2-3 second intermittent L sided 10/10 throbbing/ headache with L sided scalp tenderness and associated tugging sensation at the L ear. The patient has taken Tylenol over the past few days without relief. The patient denies nausea, diaphoresis, dizziness, unsteadiness on her feet, recent fever, recent illness, chest pain or shortness of breath. Patient has no other complaints. Past History - Past Medical History Allergies/Adverse Reactions: Allergies Allergy/AdvReac Type Severity Reaction Status Date / Time No Known Allergies Allergy Verified 05/08/18 18:04 Home Medications: Ambulatory Orders Aspirin [ASA -] 81 mg PO DAILY #0 tab.chew 07/23/12 Furosemide [Lasix -] 40 mg PO DAILY #0 tablet 07/23/12 Nebivolol HCl [Bystolic] 2.5 mg PO DAILY 11/04/14 Atorvastatin Ca [Lipitor] 20 mg PO HS 04/07/16 Levothyroxine [Synthroid -] 88 mcg PO DAILY 04/07/16 Potassium Chloride [K-Dur -] 20 meq PO DAILY 04/07/16 Cholecalciferol (Vitamin D3) [Vitamin D3 -] 1,000 unit PO DAILY 05/30/16 Multivit-Min/Folic Acid/Biotin [Hair, Skin and Nails Caplet] 1 each PO DAILY Vitamin B Complex [B Complex] 1 each PO DAILY 05/30/16 Pantoprazole Sodium [Protonix -] 40 mg PO HS #30 tablet.ec 05/09/17 Anemia: No Asthma: No Cancer: No Cardiac Disorders: Yes (PAROXYSMAL SVT, ASHF CARDIAC=30% CORONARY BLOCKAGE 04/26) CVA: No COPD: No CHF: No DVT: No Dementia: No Diabetes: No GI Disorders: Yes (ACID REFLUX, COLON POLYP) Disorders: No HTN: No Hypercholesterolemia: Yes Liver Disease: No Seizures: No Thyroid Disease: Yes (HYPO) - Surgical History Abdominal Surgery: Yes (STOMACH DAREN 30 YRS AGO) Appendectomy: No Cardiac Surgery: No Cholecystectomy: No Lung Surgery: No Neurologic Surgery: No Orthopedic Surgery: Yes (LEFT KNEE ARTHROSCOPY 8 YRS AGO) - Immunization History Immunization Up to Date: Yes - Suicide/Smoking/Psychosocial Hx Smoking Status: No Smoking History: Never smoked Have you smoked in the past 12 months: No Number of Cigarettes Smoked Daily: 0 Information on smoking cessation initiated: No Hx Alcohol Use: No Drug/Substance Use Hx: No Substance Use Type: None Hx Substance Use Treatment: No Review of Systems - Review of Systems Able to Perform ROS?: Yes Is the patient limited Sammarinese proficient: No Constitutional: No: Chills, Diaphoresis, Fever HEENTM: Yes: Blurred Vision. No: Tinnitus Respiratory: No: Cough, Orthopnea, Shortness of Breath Cardiac (ROS): No: Chest Pain, Lightheadedness, Palpitations, Syncope ABD/GI: No: Constipated, Diarrhea, Nausea, Vomiting : No: Burning, Dysuria, Hematuria Musculoskeletal: No: Back Pain, Muscle Pain Neurological: Yes: Headache. No: Numbness, Paresthesia, Tingling *Physical Exam - Vital Signs Last Vital Signs Temp Pulse Resp BP Pulse Ox 98.5 F 70 16 128/85 95 05/08/18 13:22 05/08/18 13:22 05/08/18 13:22 05/08/18 13:22 05/08/18 13:22 - Physical Exam Comments: 05/08/18 15:48 GENERAL: Awake, alert, and fully oriented, in no acute distress HEAD: No signs of trauma, normocephalic, atraumatic, L sided scalp tenderness to palpation EYES: PERRLA, EOMI, sclera anicteric, conjunctiva clear ENT: Auricles normal inspection, hearing grossly normal, nares patent, oropharynx clear without exudates. Moist mucosa NECK: Normal ROM, supple, no lymphadenopathy, JVD, or masses, no carotid bruit LUNGS: No distress, speaks full sentences, clear to auscultation bilaterally HEART: Regular rate and rhythm, normal S1 and S2, no murmurs, rubs or gallops, peripheral pulses normal and equal bilaterally. ABDOMEN: Soft, nontender, normoactive bowel sounds. No guarding, no rebound. No masses EXTREMITIES : Normal inspection, Normal range of motion, no edema. No clubbing or cyanosis. NEUROLOGICAL: Cranial nerves II through XII grossly intact. Normal speech, normal gait, no focal sensorimotor deficits SKIN: Warm, Dry, normal turgor, no rashes or lesions noted Moderate Sedation - Procedure Monitoring Vital Signs: Procedure Monitoring Vital Signs Temperature 98.5 F 05/08/18 13:22 Pulse Rate 70 05/08/18 13:22 Respiratory Rate 16 05/08/18 13:22 Blood Pressure 128/85 05/08/18 13:22 O2 Sat by Pulse Oximetry (%) 95 05/08/18 13:22 ED Treatment Course - LABORATORY CBC & Chemistry Diagram: 05/08/18 15:38 05/08/18 15:38 Medical Decision Making - Medical Decision Making 05/08/18 15:48 58 year old woman with a past medical history of hyperlipidemia, "leaky valve", "irregular heartbeat", hypothyroid who presents with 3 days of 2-3 second intermittent L sided 10/10 throbbing/ headache with L sided scalp tenderness and associated tugging sensation at the L ear. The patient has taken Tylenol over the past few days without relief. The patient denies nausea, diaphoresis, dizziness, unsteadiness on her feet, recent fever, recent illness, chest pain or shortness of breath. Patient has no other complaints. ED Course: Consider giant cell arteritis vs carotid dissection vs migraine vs intracranial bleed cbc, cmp, esr, crp, ekg EKG: normal sinus rhythm HR 75, no interval abnormalities, narrow QRS, ST and T wave segments and morphology normal. 05/08/18 16:53 cbc, cmp, crp, esr wnl head ct w/o acute pathology 05/08/18 17:19 Neurology, Dr. Mckeon, contacted recommends Tylenol, Reglan if patient symptoms resolve d/c with outpatient 05/08/18 18:33 Patient reassessed after Tylenol and Reglan Has improvement of symptoms but still has some intermittent throbbing no longer with ocular or ear involvement. Patient agrees to outpatient follow up with Neurology. *DC/Admit/Observation/Transfer Diagnosis at time of Disposition: Headache - Discharge Dispostion Disposition: HOME Condition at time of disposition: Stable Decision to Admit order: No - Referrals Referrals: Yohana Casas MD [Primary Care Provider] - Ese Mckeon MD [Staff Physician] - - Patient Instructions Additional Instructions: You were seen in the ED for complaints of occasional headaches w/ some visual changes In the ED you were evaluated with labwork and a head CT. Your results did not show significant findings. Your symptoms improved with supportive treatment. There does not appear to be an acute need for immediate hospitalization. You are advised to follow up with your Primary Care Physician within 1 week. You were given a referral to Neurology and are advised to follow up within 3-5 days. Return to the ED immediately if you experience worsening headache, neck pain or stiffness, loss of vision, fevers, nausea, vomiting, muscles weakness, facial droop, dizziness, unsteadiness on your feet or difficulty walking. - Post Discharge Activity
--- NOTE | 2018-05-08 15:20 | PDOC ---
Attending Attestation - Resident Resident Name: SheelaArchana - ED Attending Attestation I have performed the following: I have examined & evaluated the patient, The case was reviewed & discussed with the resident, I agree w/resident's findings & plan, Exceptions are as noted - Physicial Exam PE: 05/08/18 15:58 Patient is awake and alert, nontoxic-appearing, afebrile Normocephalic and atraumatic PERRLA, EOMI, Visual acuity is 20/20 bilaterally without corrective lenses TMs are normal bilaterally; really highly unlikely. No focal neurologicall signs - Medical Decision Making 05/08/18 16:00 58-year-old female presents with intermittent left sided scalp and head pain associated with several self resolving episodes of blurry vision. In the ER, patient is awake and alert, nonfocal neurologically, with intact visual acuity bilaterally. Will obtain CT of head. Bedside ultrasound showed no evidence of papilledema or retinal detachment. Will obtain ESR to evaluate for possible temporal arteritis. Will consider high-dose prednisone if elevated. <Devang Lynch - Last Filed: 05/08/18 15:58> - HPI HPI: This patient is a 58 -year-old female with past medical history of hyperlipidemia, "leaky valve", "irregular heartbeat", hypothyroidism, paroxysmal SVT, ASHD, who presents with 3 days of left-sided headache and blurry vision. Patient states the headache is throbbing, intermittent, last 2-3 secs, rates 10/10. comes and goes intermittently. Patient also reports left sided scalp tenderness and left ear tugging sensation. She reports taking Tylenol w/out relief. She denies any recent nausea, diaphoresis, dizziness, unsteadiness on her feet, recent fever, recent illness, chest pain or shortness of breath. Yohana Casas MD 05/08/18 16:07 <Kaylee Tucker - Last Filed: 05/08/18 16:07>
[2018-05-08 16:09] LABS: BASO % 0.5 % (0-2.0); EOS % 2.1 % (0-4.5); HEMATOCRIT 40.8 % (32.4-45.2); LYMPH % 34.3 % (8-40); MCH 30.8 pg (25.7-33.7); MCHC 34.2 g/dl (32.0-36.0); MEAN PLT VOLUME 8.3 fl (7.5-11.1); MONO % 7.5 % (3.8-10.2); NEUT % 55.6 % (42.8-82.8); PLATELET COUNT 402 K/MM3 (134-434); RBC 4.53 M/mm3 (3.60-5.2); RDW 13.3 % (11.6-15.6)
[2018-05-08 16:36] LABS: ALBUMIN 3.9 g/dl (3.4-5.0); ALK PHOS 126 U/L (45-117); ANION GAP 7 MMOL/L (8-16); BILIRUBIN,TOTAL 0.4 mg/dL (0.2-1); BLOOD UREA NITROGEN 13 mg/dL (7-18); CALCIUM 9.1 mg/dL (8.5-10.1); CHLORIDE 100 mmol/L (98-107); CO2 32 mmol/L (21-32); CREATININE 0.8 mg/dL (0.55-1.3); GLUCOSE,RANDOM 89 mg/dL (74-106); POTASSIUM 3.5 mmol/L (3.5-5.1); SGOT/AST 35 U/L (15-37); SGPT/ALT 44 U/L (13-61); SODIUM 139 mmol/L (136-145); TOT PROT 7.6 g/dl (6.4-8.2)
[2018-05-08] MEDS ORDERED: ACETAMINOPHEN 500 MG TABLET (FP) PO ONE (17:18)
[2018-05-08] MEDS ORDERED: METOCLOPRAMIDE HCL 10 MG TABLET (FP) PO ONE ×2 (17:18→17:59)
[2018-05-08] MEDS ORDERED: ACETAMINOPHEN 325 MG TABLET (FP) ONE (17:59)
--- NOTE | 2018-05-09 14:15 | EKG ---
Test Reason : Blood Pressure : / mmHG Vent. Rate : 075 BPM Atrial Rate : 075 BPM P-R Int : 174 ms QRS Dur : 092 ms QT Int : 348 ms P-R-T Axes : 039 -21 036 degrees QTc Int : 388 ms NORMAL SINUS RHYTHM LOW VOLTAGE QRS NONSPECIFIC ST AND T WAVE ABNORMALITY ABNORMAL ECG WHEN COMPARED WITH ECG OF 18-APR-2017 13:45, NONSPECIFIC T WAVE ABNORMALITY HAS REPLACED INVERTED T WAVES IN ANTERIOR LEADS Confirmed by KARINA LY, SARAH ([id number]) on 05/09/2018 2:15:16 PM Referred By: Confirmed By:SARAH COLLINS MD
== END 2018-05-08 18:55 | disposition home or self-care (01) ==
LOC: JERFT 13:10 → JER 13:10
DX: R51 Headache (principal); I47.1 Supraventricular tachycardia; K21.9 Gastro-esophageal reflux disease without esophagitis; E78.5 Hyperlipidemia, unspecified; E03.9 Hypothyroidism, unspecified; I49.9 Cardiac arrhythmia, unspecified
CPT/HCPCS: 36415; 70450-TC; 80053; 84443; 85025; 85651; 86140; 93005; 93010; 99283-25

== ENCOUNTER → 2021-08-26 | Day surgery (SDC) | payer OTHER | END | disposition home or self-care (01) | LOC: EDSTATUS 10:00 → JRADUS-SUR 10:07 | PROVIDERS: ATTEND Obstetrics & Gynecology | PROC: BU4CYZZ Ultrasonography of Uterus and Ovaries using Other Contrast (ICD-10-PCS; principal; 2021-08-26) | DX: N95.0 Postmenopausal bleeding (principal) | CPT/HCPCS: 58340; 76831 ==

== ENCOUNTER 2021-12-13 04:13 | Day surgery (SDC) | payer OTHER, MEDICARE ==
[2021-12-08 10:11] VITALS: BMI 34.2
[2021-12-13] MEDS ORDERED: oxyCODONE HCL 5 MG TABLET PO PRN ×3 (13:13→13:26)
[2021-12-13] MEDS ORDERED: ONDANSETRON 4 MG/2 ML VIAL IVPUSH PRN ×2 (13:13→13:26)
[2021-12-13] MEDS ORDERED: IBUPROFEN 800 MG/8 ML IJ IVPB PRN (13:13)
[2021-12-13] MEDS ORDERED: IBUPROFEN 600 MG TABLET (FP) PO PRN (13:13)
[2021-12-13] MEDS ORDERED: ELECTROLYTE-148 SOLN 1,000 ML IV SCH (13:15)
[2021-12-13] MEDS ORDERED: PROPOFOL 20 ML ONE (13:22)
[2021-12-13] MEDS ORDERED: MIDAZOLAM HCL 2 MG/2 ML SINGLE DOSE VIAL ONE (13:23)
[2021-12-13] MEDS ORDERED: ACETAMINOPHEN 325 MG TABLET (FP) PO PRN (13:26)
[2021-12-13] MEDS ORDERED: LACTATED RINGERS SOLUTION 1,000 ML IV SCH (13:30)
[2021-12-13] MEDS ORDERED: LIDOCAINE HCL 4% TOPICAL SOLN (50 ML/BOTTLE) ONE (14:12)
[2021-12-13] MEDS ORDERED: IBUPROFEN 800 MG/8 ML IJ IVPB ONE (15:05)
[2021-12-13 16:09] VITALS: RESP 16
[2021-12-13 17:14] VITALS: BP 104/60; PULSE 78; TEMP 98.1
== END 2021-12-13 17:16 | disposition home or self-care (01) ==
LOC: JASU-SURG 04:13
PROVIDERS: ATTEND Obstetrics & Gynecology
PROC: 0UDB8ZX Extraction of Endometrium, Via Natural or Artificial Opening Endoscopic, Diagnostic (ICD-10-PCS; principal; 2021-12-13 13:30)
DX: C54.1 Malignant neoplasm of endometrium (principal)
CPT/HCPCS: 88305-TC; 88341-TC; 88342-TC; 94760

== ENCOUNTER 2022-04-06 15:29 | Emergency (ER) | payer OTHER, MEDICARE ==
[2022-04-06 15:39] VITALS: TEMP 98.8; BMI 32.3
[2022-04-06] MEDS ORDERED: SODIUM CHLORIDE 0.9% 500 ML INFUS.BAG IV ONE (17:17)
[2022-04-06] MEDS ORDERED: ACETAMINOPHEN 1000 MG/100 ML BAG IVPB ONE (17:17)
[2022-04-06 17:30] LABS: URINE APPEARANCE CLEAR; URINE BILIRUBIN NEGATIVE (NEGATIVE); URINE COLOR YELLOW; URINE GLUCOSE (UA) NEGATIVE (NEGATIVE); URINE KETONE NEGATIVE (NEGATIVE); URINE LEUK ESTERASE NEGATIVE (NEGATIVE); URINE NITRITE NEGATIVE (NEGATIVE); URINE PROTEIN NEGATIVE (NEGATIVE); URINE UROBILINOGEN 0.2 mg/dL (0.2-1.0)
[2022-04-06] MEDS ORDERED: ACETAMINOPHEN INJECTION 100 ML IVPB ONE (17:38)
[2022-04-06 18:40] LABS: BASO % 0.6 % (0-2.0); HEMATOCRIT 43.1 % (32.4-45.2); LYMPH % 17.5 % (8-40); MCH 28.8 pg (25.7-33.7); MCHC 32.5 g/dl (32.0-36.0); MEAN CELL VOLUME 88.7 fl (80-96); MEAN PLT VOLUME 8.6 fl (7.5-11.1); MONO % 13.1 % (3.8-10.2); NEUT % 66.8 % (42.8-82.8); PLATELET COUNT 388 10^3/uL (134-434); RBC 4.86 M/mm3 (3.60-5.2); RDW 14.2 % (11.6-15.6); WHITE BLOOD COUNT 5.1 K/mm3 (4.0-10.0)
[2022-04-06 18:42] LABS: INR 1.18 (0.83-1.09); PROTHROMBIN TIME (PATIENT) 13.6 SEC (9.7-13.0)
[2022-04-06 18:45] LABS: ACTIVATED PTT 29.7 SECONDS (25.2-36.5)
[2022-04-06 19:00] LABS: ALBUMIN 3.8 g/dl (3.4-5.0); BLOOD UREA NITROGEN 14.7 mg/dL (7-18); CALCIUM 9.5 mg/dL (8.5-10.1); MAGNESIUM 1.9 mg/dL (1.8-2.4)
[2022-04-06 19:03] LABS: CREATININE 1.2 mg/dL (0.55-1.3)
[2022-04-06 19:04] LABS: BILIRUBIN,TOTAL 0.5 mg/dL (0.2-1)
[2022-04-06 19:05] LABS: TOT PROT 7.6 g/dl (6.4-8.2)
[2022-04-06 20:44] VITALS: BP 97/66; PULSE 80; RESP 18
== END 2022-04-06 23:34 | disposition home or self-care (01) ==
LOC: JER 15:29
PROC: 3E033GC Introduction of Other Therapeutic Substance into Peripheral Vein, Percutaneous Approach (ICD-10-PCS; principal; 2022-04-06)
DX: R10.30 Lower abdominal pain, unspecified (principal)
CPT/HCPCS: 0241U-QW; 36415; 71045-TC-FY; 74177-TC; 80053; 81003; 83690; 83735; 85025; 85610; 85730; 86850; 86900; 86901; 87086; 93005; 93010; 99285-25; Q9967

== ENCOUNTER 2022-08-25 04:13 | Day surgery (SDC) | payer OTHER, MEDICARE ==
[2022-08-23 14:10] VITALS: BMI 33.8
[2022-08-25 10:09] VITALS: TEMP 97.5
[2022-08-25 12:04] VITALS: BP 112/60; PULSE 61; RESP 13
== END 2022-08-25 12:30 | disposition home or self-care (01) ==
LOC: JASU-ENDO 04:13
PROVIDERS: ATTEND Internal Medicine Gastroenterology
PROC: 0DBL8ZX Excision of Transverse Colon, Via Natural or Artificial Opening Endoscopic, Diagnostic (ICD-10-PCS; 2022-08-25)
PROC: 0DBP8ZX Excision of Rectum, Via Natural or Artificial Opening Endoscopic, Diagnostic (ICD-10-PCS; principal; 2022-08-25 11:00)
DX: Z12.11 Encounter for screening for malignant neoplasm of colon (principal); D12.3 Benign neoplasm of transverse colon; D12.8 Benign neoplasm of rectum; K57.30 Diverticulosis of large intestine without perforation or abscess without bleeding; K64.8 Other hemorrhoids; Z86.010 Personal history of colon polyps
CPT/HCPCS: 88305-TC

== ENCOUNTER 2022-11-07 09:20 | Emergency (ER) | payer OTHER, MEDICARE ==
[2022-11-07 09:24] VITALS: BP 142/84; PULSE 58; RESP 18; TEMP 97.9; BMI 33.6
[2022-11-07] MEDS ORDERED: ACETAMINOPHEN 500 MG TABLET (FP) PO ONE (10:52)
[2022-11-07] MEDS ORDERED: LIDOCAINE 5% TOPICAL PATCH TP ONE (10:52)
[2022-11-07] MEDS ORDERED: LIDOCAINE 5% TOPICAL PATCH ONE (11:18)
[2022-11-07] MEDS ORDERED: ACETAMINOPHEN 325 MG TABLET (FP) ONE (11:18)
[2022-11-07] MEDS ORDERED: LIDOCAINE PATCH REMOVAL MC ONE (22:00)
== END 2022-11-07 12:14 | disposition home or self-care (01) ==
LOC: JERFT 09:20
DX: M25.521 Pain in right elbow (principal)
CPT/HCPCS: 73070-TC-RT-FY; 99283-25